=== PATIENT | female | born 1945 | race Caucasian/White ===

== ENCOUNTER 2017-03-18 11:50 | Emergency (ER) | payer OTHER, BC ==
[2017-03-18 12:09] VITALS: BP 172/66; PULSE 68; TEMP 97.4; BMI 19.3
--- NOTE | 2017-03-18 12:40 | PDOC ---
History of Present Illness - General Chief Complaint: Tremors Stated Complaint: HAND TREMORS, UTI Time Seen by Provider: 03/18/17 12:40 - History of Present Illness Initial Comments: 03/18/17 16:13 Chief complaint: Tremors History of present illness: Patient complains of fine tremors in both hands for the last several months. They are intermittent, and appear to be associated with nervousness or anxiety. They disappear with use of the hands. Review of systems: Denies any other neurological symptoms including sensory or motor symptoms in the extremities, unsteadiness of gait, visual disturbance. Denies chest pain, shortness of breath, abdominal pain, nausea, vomiting, diarrhea, vaginal bleeding or discharge, dysuria, frequency, urgency, hesitancy , hematuria, fever/chills, URI symptoms, sore throat, cough. Remainder systems reviewed and found to be negative Past medical history: Recurrent urinary tract infections, being treated for UTI , undergoing cystoscopy later this afternoon by her urologist. Otherwise noncontributory Social/family history: Nervousness, anxiety, has not address the issue with her physicians. Sibling with Parkinson's. Otherwise noncontributory Physical exam: Alert oriented well-developed well-nourished cooperative no acute distress Afebrile, vital signs normal PERRLA, fundi benign, ENT clear Neck supple without bruit mass or nodes Chest clear CV regular without murmur rub or gallop Abdomen benign Neurological there is a fine tremor in both hands at rest, disappearing with intent. There is no hyperreflexia or rigidity. Gait is stable. No focal sensory or motor deficits. Strength full and symmetric. Cerebellum intact Impression: Fine tremor associated with anxiety, possible early Parkinson's. Persistent pyuria being worked up by urologist. Plan: Mild anxiolytic to use when necessary until further evaluation by neurologist. Fully ambulatory and in no distress upon discharge to follow-up with urologist and neurologist as directed. Past History - Past Medical History Allergies/Adverse Reactions: Allergies Allergy/AdvReac Type Severity Reaction Status Date / Time No Known Allergies Allergy Verified 03/18/17 12:03 Home Medications: Ambulatory Orders Levothyroxine [Synthroid -] 50 mcg PO Q48H 04/27/11 B2/Vits A,C,E/Lut/Zeaxanth/Min [Icaps Tablet] 1 each PO DAILY 01/22/15 Ca Citrate/Mgox/Vit D3/B6/Min [Citracal Plus Tablet] 1 each PO DAILY 01/22/15 Cholecalciferol (Vitamin D3) [Vitamin D3] 1,000 unit PO DAILY 01/22/15 Multivitamin with Minerals [Icaps Plus] 1 each PO DAILY 01/22/15 Levothyroxine [Synthroid -] 75 mcg PO Q48H 01/23/15 Metoprolol Succinate [Toprol Xl] 100 mg PO HS 01/23/15 Aspirin Coated [Ecotrin -] 81 mg PO HS 03/18/17 Denosumab [Prolia -] 60 mg SQ ASDIR 03/18/17 Hydroxyzine Pamoate [Vistaril -] 25 mg PO TID PRN #20 capsule 03/18/17 Anemia: No Asthma: No Cancer: No Cardiac Disorders: Yes (IRREGULAR HEART BEAT, MVP) CVA: No COPD: No CHF: No Dementia: No Diabetes: No GI Disorders: Yes (IBS,DIVERTICULAR DIS.OF COLON,BENIGN NEOPLASM OF COLON) Disorders: No HTN: Yes Hypercholesterolemia: No Liver Disease: No Seizures: No Thyroid Disease: Yes - Surgical History Abdominal Surgery: No Appendectomy: No Cardiac Surgery: No Cholecystectomy: No Lung Surgery: No Neurologic Surgery: No Orthopedic Surgery: No - Immunization History Immunization Up to Date: Yes - Suicide/Smoking/Psychosocial Hx Smoking Status: No Smoking History: Never smoked Number of Cigarettes Smoked Daily: 0 Hx Alcohol Use: Yes (RARE OCCASIONS) Drug/Substance Use Hx: No Substance Use Type: None Hx Substance Use Treatment: No *Physical Exam - Vital Signs Last Vital Signs Temp Pulse Resp BP Pulse Ox 97.4 F L 68 16 172/66 100 03/18/17 11:58 03/18/17 11:58 03/18/17 11:58 03/18/17 11:58 03/18/17 11:58 ED Treatment Course - LABORATORY CBC & Chemistry Diagram: 03/18/17 14:00 03/18/17 14:00 Medical Decision Making - Medical Decision Making 03/18/17 14:24 Greater than 50 white cells. The patient is being treated for UTI and has an appointment for cystoscopy this afternoon with the urologist. No further treatment initiated *DC/Admit/Observation/Transfer Diagnosis at time of Disposition: Essential tremor - Discharge Dispostion Disposition: HOME Condition at time of disposition: Stable Admit: No - Prescriptions Prescriptions: Hydroxyzine Pamoate [Vistaril -] 25 mg PO TID PRN #20 capsule PRN Reason: Anxiety - Referrals Referrals: Steven Barros DO [Staff Physician] - 1 week - Patient Instructions Printed Discharge Instructions: DI for Anxiety -- Adult, DI for Benign Essential Tremor - Post Discharge Activity
[2017-03-18 13:12] LABS: URINE APPEARANCE Cloudy; URINE BILIRUBIN Negative (NEGATIVE); URINE BLOOD Trace-intact (NEGATIVE); URINE COLOR YELLOW; URINE GLUCOSE (UA) Negative (NEGATIVE); URINE KETONE Negative (NEGATIVE); URINE NITRITE Negative (NEGATIVE); URINE PROTEIN Negative (NEGATIVE); URINE UROBILINOGEN 0.2 (0.2-1.0)
[2017-03-18 13:37] LABS: EPI CELLS FEW /HPF; URINE BACTERIA MANY /hpf (NEGATIVE); URINE RBC 0-2 /hpf (0-3); URINE WBC >50 (0-5)
[2017-03-18] MEDS ORDERED: hydrOXYzine PAMOATE 25 MG CAPSULE (FP) PO ONE ×2 (13:50→14:02)
[2017-03-18 14:29] LABS: BASO % 0.9 % (0-2.0); EOS % 1.8 % (0-4.5); HEMATOCRIT 45.3 % (32.4-45.2); HEMOGLOBIN 14.7 GM/dl (10.7-15.3); LYMPH % 18.6 % (8-40); MCH 30.4 pg (25.7-33.7); MCHC 32.5 g/dl (32.0-36.0); MEAN CELL VOLUME 93.6 fl (80-96); MEAN PLT VOLUME 7.6 fl (7.5-11.1); MONO % 7.6 % (3.8-10.2); NEUT % 71.1 % (42.8-82.8); PLATELET COUNT 387 K/MM3 (134-434); RBC 4.84 M/mm3 (3.60-5.2); RDW 12.5 % (11.6-15.6); WHITE BLOOD COUNT 6.6 K/mm3 (4.0-10.8)
[2017-03-18 16:03] LABS: ANION GAP 7 (8-16); BILIRUBIN,TOTAL 0.4 mg/dL (0.2-1.0); BLOOD UREA NITROGEN 14 mg/dL (7-18); CALCIUM 9.2 mg/dL (8.5-10.1); CHLORIDE 105 mmol/L (98-107); CO2 29 mmol/L (21-32); CREATININE 1.2 mg/dL (0.55-1.02); GLUCOSE,RANDOM 101 mg/dL (74-106); POTASSIUM 4.8 mmol/L (3.5-5.1); SGOT/AST 29 U/L (15-37); SGPT/ALT 25 U/L (12-78); SODIUM 141 mmol/L (136-145); TOT PROT 7.6 g/dl (6.4-8.2)
[2017-03-18 16:04] LABS: ALK PHOS 64 U/L (45-117)
== END 2017-03-18 14:14 | disposition home or self-care (01) ==
LOC: FER 11:50
DX: R25.1 Tremor, unspecified (principal); K58.9 Irritable bowel syndrome, unspecified; E07.9 Disorder of thyroid, unspecified; I10 Essential (primary) hypertension
CPT/HCPCS: 36415; 80053; 81003; 81015; 85025; 87086; 87186; 99281-25

== ENCOUNTER 2019-01-19 10:53 | Emergency (ER) | payer OTHER, BC ==
[2019-01-19 11:06] VITALS: BMI 25.5
--- NOTE | 2019-01-19 11:15 | PDOC ---
History of Present Illness - General Chief Complaint: Injury Stated Complaint: LOWER BACK PAIN - History of Present Illness Initial Comments: 01/19/19 12:55 74 year old woman with a history of HTN who presents with neck, upper and lower back pain, R knee pain after slipping down 8 stairs 2 days ago, The patient was able to stand up and walk but reports since the fall her pain has worsened. She denies any changes in vision or hearing. Denies chest pain, shortness of breath , abdominal pain, pain in any other extremities. She has no other complaints Meds: ASA 81 ROS GENERAL/CONSTITUTIONAL: No fever or chills. No weakness. HEAD, EYES, EARS, NOSE AND THROAT: No change in vision. No ear pain or discharge. No sore throat. CARDIOVASCULAR: No chest pain or shortness of breath RESPIRATORY: No cough, wheezing, or hemoptysis. GASTROINTESTINAL: No nausea, vomiting, diarrhea or constipation. GENITOURINARY: No dysuria, frequency, or change in urination. MUSCULOSKELETAL: + joint or muscle swelling or pain. + neck or back pain. SKIN: No rash NEUROLOGIC: No headache, vertigo, loss of consciousness, or change in strength/ sensation. PE GENERAL: Awake, alert, and fully oriented, in no acute distress HEAD: No signs of trauma, normocephalic, atraumatic EYES: EOMI, sclera anicteric, conjunctiva clear ENT: oropharynx clear without exudates. Moist mucosa NECK: Normal ROM, supple LUNGS: No distress, speaks full sentences, clear to auscultation bilaterally HEART: Regular rate and rhythm, normal S1 and S2, no murmurs, rubs or gallops, peripheral pulses normal and equal bilaterally. ABDOMEN: Soft, nontender No guarding, no rebound. No masses BACK: upper thoracic spinal tenderness, lumbar spinal ttp, L lumbar brusing, no stepoffs EXTREMITIES : Normal inspection, Normal range of motion, + R knee tenderness to palpation, NV intact NEUROLOGICAL: Cranial nerves II through XII grossly intact. Normal speech, no focal sensorimotor deficits SKIN: Warm, Dry, normal turgor, no rashes or lesions noted MDM DDX including but not limited to: r/o fx msk ED Course: XR negative for R knee XR of pelvis with signs of old R sided inf pubic rami fx XR of chest with L nodular density, otherwise negative CT with T3 compression deformity, no neurologic changes will giv spine ortho f/u Patinet feels improved on reassessment and ambulating without difficulty d/c with ortho and pcp f/u patient understands and agrees given strict return precautions Zee Lane PGY2 Emergency Medicine Past History - Past Medical History Allergies/Adverse Reactions: Allergies Allergy/AdvReac Type Severity Reaction Status Date / Time No Known Allergies Allergy Verified 03/18/17 12:03 Home Medications: Ambulatory Orders Metoprolol Succinate [Toprol Xl] 100 mg PO HS 01/23/15 Aspirin Coated [Ecotrin -] 81 mg PO HS 03/18/17 Amlodipine Besylate [Norvasc -] 5 mg PO DAILY 01/19/19 Cholecalciferol (Vitamin D3) [Vitamin D3 -] 1,000 unit PO DAILY 01/19/19 Donepezil HCl 5 mg PO DAILY 01/19/19 Levothyroxine [Synthroid -] 88 mcg PO DAILY 01/19/19 Losartan Potassium 100 mg PO DAILY 01/19/19 Anemia: No Asthma: No Cancer: No Cardiac Disorders: Yes (IRREGULAR HEART BEAT, MVP) CVA: No COPD: No CHF: No Dementia: No Diabetes: No GI Disorders: Yes (IBS,DIVERTICULAR DIS.OF COLON,BENIGN NEOPLASM OF COLON) Disorders: No HTN: Yes Hypercholesterolemia: No Liver Disease: No Seizures: No Thyroid Disease: Yes - Surgical History Abdominal Surgery: No Appendectomy: No Cardiac Surgery: No Cholecystectomy: No Lung Surgery: No Neurologic Surgery: No Orthopedic Surgery: No - Immunization History Immunization Up to Date: Yes - Psycho Social/Smoking Cessation Hx Smoking Status: No Smoking History: Never smoked Have you smoked in the past 12 months: No Number of Cigarettes Smoked Daily: 0 Information on smoking cessation initiated: No Hx Alcohol Use: No Drug/Substance Use Hx: No Substance Use Type: None Hx Substance Use Treatment: No *Physical Exam - Vital Signs Last Vital Signs Temp Pulse Resp BP Pulse Ox 97.9 F 87 16 161/52 L 97 01/19/19 10:59 01/19/19 10:59 01/19/19 10:59 01/19/19 10:59 01/19/19 10:59 Discharge - Discharge Information Problems reviewed: Yes Clinical Impression/Diagnosis: Vertebral compression fracture Condition: Stable Disposition: HOME - Admission No - Follow up/Referral Referrals: Oswald Paez MD [Primary Care Provider] - Artie Juárez MD [Staff Physician] - - Patient Discharge Instructions Patient Printed Discharge Instructions: Vertebral Compression Fracture Additional Instructions: You were seen in the ER after a fall Your imaging was significant for T3 compression deformity You have a referral to spine ortho speciality and should follow up within 1 week. You were also found to have a L lung nodule for which you should follow up with your Family Doctor within 1 week. Return to the ER if you have worsening back pain, numbness, tingling, difficulty breathing or any other concerning symptoms. - Post Discharge Activity
[2019-01-19] MEDS ORDERED: ACETAMINOPHEN 325 MG TABLET (FP) PO ONE (11:19)
[2019-01-19] MEDS ORDERED: ACETAMINOPHEN 325 MG TABLET (FP) ONE (11:58)
--- NOTE | 2019-01-19 12:33 | PDOC ---
Documentation entered by Abby Brunson SCRIBE, acting as scribe for Patrice Suárez MD. Patrice Suárez MD: This documentation has been prepared by the Boy gallagher Nirvannie, SCRIBE, under my direction and personally reviewed by me in its entirety. I confirm that the documentation accurately reflects all work, treatment, procedures, and medical decision making performed by me. Attending Attestation - Resident Resident Name: Zee Laen - ED Attending Attestation I have performed the following: I have examined & evaluated the patient, The case was reviewed & discussed with the resident, I agree w/resident's findings & plan, Exceptions are as noted - HPI HPI: 01/19/19 12:33 74 F presenting to ED with lower back pain after fall 2 days ago. Pt states that she slipped going downstairs and landed on her back, also hitting her head against the stairs. Denies LOC. Pt states that she slid down on her backside approx 8 stairs. She was able to get herself up afterwards. Yesterday, pt reports that her pain was well controlled with motrin, and she was able to go about her day. This morning, pt awoke with worsening lower back pain. Pt denies any CORDON/N/V. Denies neck or upper back pain. Denies weakness/numbness in any extremity. Denies incontinence. - Physicial Exam PE: 01/19/19 12:36 "GENERAL: Awake, alert, and fully oriented, in no acute distress. HEAD: No signs of trauma EYES: PERRLA, EOMI, sclera anicteric, conjunctiva clear ENT: Auricles normal inspection, hearing grossly normal, nares patent, oropharynx clear without exudates. Moist mucosa NECK: Nontender, no stepoffs, Normal ROM, supple, no lymphadenopathy, JVD, or masses LUNGS: Breath sounds equal, clear to auscultation bilaterally. No wheezes, and no crackles HEART: Regular rate and rhythm, normal S1 and S2, no murmurs, rubs or gallops ABDOMEN: Soft, nontender, normoactive bowel sounds. No guarding, no rebound. No masses EXTREMITIES: Normal range of motion, no edema. No clubbing or cyanosis. No cords, erythema, or tenderness NEUROLOGICAL: Cranial nerves II through XII intact. 5/5 strength and sensation in all extremities, Normal speech, normal gait, normal cerebellar function SKIN: Warm, Dry, normal turgor, no rashes or lesions noted. BACK: + ecchymosis and tenderness lumbar area, no stepoffs - Medical Decision Making 01/19/19 12:36 74 F with lower back pain, ecchymosis, tenderness, after falling 2 days ago. - CT head/c-spine/T-spine/L-spine 01/19/19 14:54 CT with compression fx in T spine Pt with no neuro deficits. Pain is well controlled Ambulatory in ED with steady gait Will DC with ortho spine f/u Pt is well appearing, with normal vitals. Clinically stable for DC at this time. I discussed the physical exam findings, ancillary test results and final diagnoses with the patient. I answered all of the patient's questions. The patient was satisfied with the care received and felt comfortable with the discharge plan and treatment plan. The patient agrees to follow up with the primary care physician within 24-72 hours.
[2019-01-19 15:18] VITALS: BP 123/63; PULSE 89; TEMP 97
--- NOTE | 2019-01-22 20:30 | EKG ---
Test Reason : Blood Pressure : / mmHG Vent. Rate : 088 BPM Atrial Rate : 088 BPM P-R Int : 158 ms QRS Dur : 070 ms QT Int : 382 ms P-R-T Axes : 011 -11 068 degrees QTc Int : 462 ms NORMAL SINUS RHYTHM NORMAL ECG NO PREVIOUS ECGS AVAILABLE Confirmed by DOTTIE SMITH MD ([id number]) on 01/22/2019 8:29:56 PM Referred By: Confirmed By:DOTTIE SMITH MD
== END 2019-01-19 15:15 | disposition home or self-care (01) ==
LOC: JER 10:53
DX: S22.038A Other fracture of third thoracic vertebra, initial encounter for closed fracture (principal); S30.0XXA Contusion of lower back and pelvis, initial encounter; M25.561 Pain in right knee; W10.8XXA Fall (on) (from) other stairs and steps, initial encounter; Y93.89 Activity, other specified; Y92.018 Other place in single-family (private) house as the place of occurrence of the external cause; I10 Essential (primary) hypertension; Y99.8 Other external cause status; R91.1 Solitary pulmonary nodule; E03.9 Hypothyroidism, unspecified; I34.1 Nonrheumatic mitral (valve) prolapse; I49.8 Other specified cardiac arrhythmias; Z87.19 Personal history of other diseases of the digestive system
CPT/HCPCS: 70450-TC; 71045-TC-FY; 72125-TC; 72128-TC; 72131-TC; 72170-TC-FY; 73560-TC-RT-FY; 87086; 87186; 93005; 93010; 99283-25

== ENCOUNTER 2019-04-12 10:50 | Emergency (ER) | payer OTHER, BC ==
[2019-04-12 11:10] VITALS: TEMP 98.6; BMI 19.5
--- NOTE | 2019-04-12 13:12 | PDOC ---
History of Present Illness - General Chief Complaint: Lightheaded Stated Complaint: FALL ON FACE Time Seen by Provider: 04/12/19 13:07 History Source: Patient Exam Limitations: No Limitations - History of Present Illness Initial Comments: 04/12/19 13:11 Genevieve Blevins is a 74F with PMH HTN, osteoporosis, and essential tremor presenting with lightheadedness and fall on face. At 5AM stood up from bed and was walking to bathroom, says she felt dizzy, slipped while wearing socks on wood floor, fell onto face and arms. Denies chest pain, palpitations, SOB, vision changes, weakness prior. saw patient after fall, helped up, patient walked to restroom by herself with normal gait, per at baseline mental status. Patient denies LOC, CORDON. Patient walked back to bed, took a nap. Daughter came and brought patient to hospital for further eval at lunchtime. Patient reports facial swelling, no CORDON or vision changes. Say she has pain in her left buttock and some bruising on her arms, otherwise denies chest, neck, back pain. On daily ASA 81mg, no other AC. No allergies. Takes daily metoprolol for HTN. PSH back surgery. PMD [facility] Past History - Past Medical History Allergies/Adverse Reactions: Allergies Allergy/AdvReac Type Severity Reaction Status Date / Time No Known Allergies Allergy Verified 04/12/19 11:07 Home Medications: Ambulatory Orders Metoprolol Succinate [Toprol Xl] 100 mg PO HS 01/23/15 Aspirin Coated [Ecotrin -] 81 mg PO HS 03/18/17 Amlodipine Besylate [Norvasc -] 5 mg PO DAILY 01/19/19 Cholecalciferol (Vitamin D3) [Vitamin D3 -] 1,000 unit PO DAILY 01/19/19 Donepezil HCl 5 mg PO DAILY 01/19/19 Levothyroxine [Synthroid -] 88 mcg PO DAILY 01/19/19 Losartan Potassium 100 mg PO DAILY 01/19/19 Denosumab [Prolia] 60 mg SQ ASDIR 04/12/19 Anemia: No Asthma: No Cancer: No Cardiac Disorders: Yes (IRREGULAR HEART BEAT, MVP) CVA: No COPD: No CHF: No Dementia: No Diabetes: No GI Disorders: Yes (IBS,DIVERTICULAR DIS.OF COLON,BENIGN NEOPLASM OF COLON) Disorders: No HTN: Yes Hypercholesterolemia: No Liver Disease: No Seizures: No Thyroid Disease: Yes - Surgical History Abdominal Surgery: No Appendectomy: No Cardiac Surgery: No Cholecystectomy: No Lung Surgery: No Neurologic Surgery: No Orthopedic Surgery: No - Immunization History Immunization Up to Date: Yes - Psycho Social/Smoking Cessation Hx Smoking Status: No Smoking History: Never smoked Have you smoked in the past 12 months: No Number of Cigarettes Smoked Daily: 0 Hx Alcohol Use: No Drug/Substance Use Hx: No Substance Use Type: None Hx Substance Use Treatment: No Review of Systems - Review of Systems Able to Perform ROS?: Yes Constitutional: No: Chills, Fever HEENTM: No: Blurred Vision, Double Vision, Dental Problems, Difficulty Swallowing Respiratory: No: Cough, Shortness of Breath, Wheezing, Productive cough Cardiac (ROS): No: Chest Pain, Edema, Irregular Heart Rate, Lightheadedness, Palpitations, Syncope, Chest Tightness ABD/GI: No: Constipated, Diarrhea, Nausea, Poor Appetite, Poor Fluid Intake, Vomiting : No: Burning, Dysuria, Discharge, Frequency, Flank Pain, Hematuria, Incontinence, Pain Musculoskeletal: No: Back Pain, Muscle Pain, Muscle Weakness, Neck Pain Integumentary: Yes: Bruising. No: Lumps Neurological: Yes: Dizziness. No: Headache, Numbness, Paresthesia, Seizure, Unsteady Gait, Ataxia Endocrine: No: Symptoms Reported Hematologic/Lymphatic: No: Symptoms Reported All Other Systems: Reviewed and Negative *Physical Exam - Vital Signs Last Vital Signs Temp Pulse Resp BP Pulse Ox 98.6 F 77 16 134/48 L 99 04/12/19 11:07 04/12/19 11:07 04/12/19 11:07 04/12/19 11:07 04/12/19 11:07 - Physical Exam General Appearance: Yes: Nourished, Appropriately Dressed. No: Apparent Distress HEENT: positive: EOMI, CORINNE, Normal Voice, Symmetrical, Pharynx Normal. negative: Scleral Icterus (R), Scleral Icterus (L), Pharyngeal Erythema, Tonsillar Exudate, Tonsillar Erythema Neck: positive: Trachea midline, Normal Thyroid, Supple. negative: Tender, Rigid, Decreased range of motion (moves neck in all directions without pain or difficulty), Lymphadenopathy (R), Lymphadenopathy (L), Tender lateral, Tender midline Respiratory/Chest: positive: Lungs Clear, Normal Breath Sounds. negative: Chest Tender, Respiratory Distress, Accessory Muscle Use, Labored Respiration, Crackles, Rales, Rhonchi, Stridor, Wheezing Cardiovascular: positive: Regular Rhythm, Regular Rate. negative: Murmur Gastrointestinal/Abdominal: positive: Normal Bowel Sounds, Flat, Soft. negative : Tender, Organomegaly, Pulsatile Mass, Guarding, Rebound Musculoskeletal: positive: Normal Inspection. negative: CVA Tenderness, Decreased Range of Motion Extremity: positive: Normal Capillary Refill, Normal Range of Motion, Pelvis Stable. negative: Normal Inspection, Tender, Coldness, Cyanosis, Pedal Edema, Swelling Integumentary: positive: Normal Color, Dry, Warm, Bruising (R dorsal hand and left volar forearm) Neurologic: positive: diving instructor II-XII NML intact, Fully Oriented, Alert, Normal Mood/ Affect, Normal Response, Motor Strength 5/5 (no strength deficits in any groups) , Sensory Deficit. negative: Numbness Procedures - Laceration/Wound Repair Upper Anterior Nose Wound Length: to 2.5 cm Wound Explored: clean Wound's Depth, Shape: superficial Irrigated w/ Saline: Yes Betadine Prep: No Wound Repaired With: Dermabond ED Treatment Course - LABORATORY CBC & Chemistry Diagram: 04/12/19 14:00 04/12/19 14:00 - RADIOLOGY Radiograph Interpretation: 04/12/19 14:50 CT Head: No evidence of acute intracranial hemorrhage, edema, midline shift, mass effect, or skull fracture. No CT evidence of acute territorial ischemic changes. Left nasal bones fractures with soft tissue swelling. 04/12/19 14:51 CT Face: Left nasal bone fractures with soft tissue swelling, clinically correlate with point tenderness. Intact remaining facial bones. Medical Decision Making - Medical Decision Making 04/12/19 14:29 Patient presents with episode of dizziness and fall hours prior with trauma to face, denies other injuries other than some mild buttock pain with movement. A/ O x3, no speech or vision deficits, no CN deficits, no cerebellar deficits. Has 0.5cm nose laceration and left periorbital ecchymosis without vision deficits. Has known history of mechanical slip/fall. Will eval for cardiac causes given report dizziness, eval for head injury, Dermabond the laceration, likely dispo home if evaluation normal. - CT facial bones/head/c-spine for eval fractures and ICH - CMP for eval Cr/lytes - CBC for eval - CP/ECG/CXR for eval cardiac disease - Boostrix for tetanus, lac repair with Dermabond 04/12/19 14:52 CT shows left nasal bone fracture. No ICH or skull fx. No C-spine fx. Adding XR R hand for pain over R thumb on attending re-eval. Labs notable for: - CMP WNL - CBC WNL - trop 0.02 CXR unremarkable ECG no evidence of arrhythmia, ischemic changes, or TWI. 04/12/19 18:02 R hand XR no fracture. Dermabond applied to nasal bridge laceration, patient tolerated well. Patient needs f/u with ENT, referral given for nasal bone fracture. Stable for discharge home with ENT f/u. Discharge - Discharge Information Problems reviewed: Yes Clinical Impression/Diagnosis: Dizziness Fall Qualifiers: Encounter type: initial encounter Qualified Code(s): W19.XXXA - Unspecified fall, initial encounter Facial laceration Qualifiers: Encounter type: initial encounter Qualified Code(s): S01.81XA - Laceration without foreign body of other part of head, initial encounter Condition: Stable - Follow up/Referral Referrals: Chip Larson MD [Primary Care Provider] - Rick Reynolds MD [Staff Physician] - Chuckie Hadley MD [Staff Physician] - - Patient Discharge Instructions Patient Printed Discharge Instructions: DI for Laceration Repair With Dermabond Additional Instructions: Today you were evaluated for a fall and facial injury. Your CT scan does not show any evidence of brain bleeding, but you have a small nasal bone fracture that needs to be follow-ed up by an ENT doctor, and a referral has been given. Your labs do not show any evidence of infection, heart disease. Your fall was likely due to a trip and fall, but you should be careful in the future. Stay hydrated, see your assistant account executive, if you do not have one a referral has been given. If you experience worsening dizziness, chest pain, SOB, or any other new or concerning symptoms, please return to the emergency room. - Post Discharge Activity
[2019-04-12 14:23] LABS: BASO % 0.6 % (0-2.0); EOS % 0.3 % (0-4.5); HEMATOCRIT 44.1 % (32.4-45.2); HEMOGLOBIN 14.8 GM/dL (10.7-15.3); MCHC 33.5 g/dl (32.0-36.0); MEAN CELL VOLUME 89.6 fl (80-96); MEAN PLT VOLUME 7.4 fl (7.5-11.1); MONO % 11.1 % (3.8-10.2); PLATELET COUNT 374 K/MM3 (134-434); RBC 4.92 M/mm3 (3.60-5.2); RDW 13.9 % (11.6-15.6); WHITE BLOOD COUNT 10.1 K/mm3 (4.0-10.0)
[2019-04-12 14:35] LABS: INR 0.92 (0.83-1.09); PROTHROMBIN TIME (PATIENT) 10.9 SEC (9.7-13.0)
[2019-04-12 14:37] LABS: ACTIVATED PTT 31.5 SECONDS (25.2-36.5)
[2019-04-12] MEDS ORDERED: DIPHTH,PERTUSS(ACELL),TET 0.5 ML DISP.SYRIN IM ONE ×2 (14:40→15:51)
[2019-04-12 14:51] LABS: BILIRUBIN,TOTAL 0.3 mg/dL (0.2-1); BLOOD UREA NITROGEN 16.8 mg/dL (7-18); CALCIUM 9.4 mg/dL (8.5-10.1); POTASSIUM 4.1 mmol/L (3.5-5.1); TOT PROT 7.6 g/dl (6.4-8.2)
--- NOTE | 2019-04-12 15:44 | PDOC ---
Documentation entered by Charlette Maher SCRIBE, acting as scribe for Peter Martinez MD. Peter Martinez MD: This documentation has been prepared by the Gunnar gallagher Adrianna, SCRIBE, under my direction and personally reviewed by me in its entirety. I confirm that the documentation accurately reflects all work, treatment, procedures, and medical decision making performed by me. Attending Attestation - Resident Resident Name: Yoel Donovan - ED Attending Attestation I have performed the following: I have examined & evaluated the patient, The case was reviewed & discussed with the resident, I agree w/resident's findings & plan, Exceptions are as noted - HPI HPI: The patient is a 74 year old female, with a significant PMH of MVP, HTN IBS, and essential tremor, who presents to the ED for evaluation s/p mechanical fall from standing. Patient notes she felt dizzy while walking, slipped and fell to the floor hitting her face and arms. at bedside notes she is currently at her baseline mental status. Allergies: NKA, NKDA Surgical History: None reported Social History: Denies EtOH, tobacco, or illicit drug use PCP: Dr. Larson - Physicial Exam PE: 04/12/19 15:41 Patient is awake and alert, frail appearing, in no distress, GCS-15 Normocephalic, + extensive periorbital ecchymoses (most pronounced on the left) , with a 0.5 cm laceration to the glabella No bony crepitus or step-offs EOMI, PERRLA No hemotympanum, negative green sign Neck is supple, without gross deformity or midline tenderness to palpation CTA RRR Abdomen soft nontender Pelvis is stable + Ecchymoses to the base of the right thumb with mild tenderness to the snuffbox No focal neurological deficits - Medical Decision Making 04/12/19 15:43 Patient is 74-year-old female with multiple comorbidities who presents to the ER with facial and hand trauma status post mechanical fall. CT of head/ cervical spine and facial bones reveals a left nasal bone fracture without evidence of intracranial pathology. Will rule out scaphoid fracture. Will close glabella laceration primarily. Will update tetanus. Likely discharge.
[2019-04-12 17:58] VITALS: BP 154/87; PULSE 68
--- NOTE | 2019-04-13 14:28 | EKG ---
Test Reason : Blood Pressure : / mmHG Vent. Rate : 069 BPM Atrial Rate : 069 BPM P-R Int : 160 ms QRS Dur : 086 ms QT Int : 426 ms P-R-T Axes : 044 023 061 degrees QTc Int : 456 ms POOR DATA QUALITY, INTERPRETATION MAY BE ADVERSELY AFFECTED NORMAL SINUS RHYTHM NORMAL ECG WHEN COMPARED WITH ECG OF 19-JAN-2019 13:15, NO SIGNIFICANT CHANGE WAS FOUND Confirmed by BHARGAV FLAHERTY, AMANDA ([id number]) on 04/13/2019 2:28:16 PM Referred By: Confirmed By:AMANDA DURANT MD
== END 2019-04-12 17:58 | disposition home or self-care (01) ==
LOC: JER 10:50
PROC: 0HQ1XZZ Repair Face Skin, External Approach (ICD-10-PCS; principal; 2019-04-12)
DX: S02.2XXA Fracture of nasal bones, initial encounter for closed fracture (principal); S01.21XA Laceration without foreign body of nose, initial encounter; W01.0XXA Fall on same level from slipping, tripping and stumbling without subsequent striking against object, initial encounter; Z91.81 History of falling; Y93.89 Activity, other specified; Y92.013 Bedroom of single-family (private) house as the place of occurrence of the external cause; Y99.8 Other external cause status; I10 Essential (primary) hypertension; G25.0 Essential tremor; M19.90 Unspecified osteoarthritis, unspecified site; E07.9 Disorder of thyroid, unspecified; Z87.19 Personal history of other diseases of the digestive system
CPT/HCPCS: 36415; 70450-TC; 70486-TC; 71046-TC-FY; 72125-TC; 73130-TC-RT-FY; 80053; 82550; 84484; 85025; 85610; 85730; 90715; 93005; 93010; 99282-25

== ENCOUNTER 2019-05-12 11:45 | Emergency (ER) | payer OTHER, BC ==
--- NOTE | 2019-05-12 11:57 | PDOC ---
History of Present Illness - General Chief Complaint: Diarrhea Stated Complaint: DEHYDRATION Time Seen by Provider: 05/12/19 11:53 History Source: Patient Exam Limitations: No Limitations - History of Present Illness Initial Comments: 74 yo F with a hx of HTN, osteoporosis, essential tremor, IBS, and MVP presents to the emergency department with referral from PMD for dehydration in the setting diarrhea for the past 10 days. Per the patient's family, the patient completed a azithromycin pack last Wednesday for presumed infection. The patient continued to have diarrhea. The patient endorses 2-3 episodes per day without hematochezia. The patient denies the following: fevers, chills, nausea, vomiting, chest pain, SOB, headaches, and hematuria. Endorses dysuria for the past 2-3 days. Denies abdominal pain. Denies recent travels and recent sick contacts. Past History - Past Medical History Allergies/Adverse Reactions: Allergies Allergy/AdvReac Type Severity Reaction Status Date / Time No Known Allergies Allergy Verified 04/12/19 11:07 Home Medications: Ambulatory Orders Metoprolol Succinate [Toprol Xl] 100 mg PO HS 01/23/15 Aspirin Coated [Ecotrin -] 81 mg PO HS 03/18/17 Amlodipine Besylate [Norvasc -] 5 mg PO DAILY 01/19/19 Cholecalciferol (Vitamin D3) [Vitamin D3 -] 1,000 unit PO DAILY 01/19/19 Donepezil HCl 5 mg PO DAILY 01/19/19 Levothyroxine [Synthroid -] 88 mcg PO DAILY 01/19/19 Losartan Potassium 100 mg PO DAILY 01/19/19 Denosumab [Prolia] 60 mg SQ ASDIR 04/12/19 Antiox.mv No.10/Omeg3s/Lut/Bret [I-Caps with Lutein-[place] 3 Sfg] 1 each PO DAILY 05/12/19 Cephalexin [Keflex] 500 mg PO BID #20 capsule 05/12/19 Anemia: No Asthma: No Cancer: No Cardiac Disorders: Yes (IRREGULAR HEART BEAT, MVP) CVA: No COPD: No CHF: No Dementia: No Diabetes: No GI Disorders: Yes (IBS,DIVERTICULAR DIS.OF COLON,BENIGN NEOPLASM OF COLON) Disorders: No HTN: Yes Hypercholesterolemia: No Liver Disease: No Seizures: No Thyroid Disease: Yes - Surgical History Abdominal Surgery: No Appendectomy: No Cardiac Surgery: No Cholecystectomy: No Lung Surgery: No Neurologic Surgery: No Orthopedic Surgery: No - Immunization History Immunization Up to Date: Yes - Psycho Social/Smoking Cessation Hx Smoking Status: No Smoking History: Never smoked Have you smoked in the past 12 months: No Number of Cigarettes Smoked Daily: 0 Hx Alcohol Use: No Drug/Substance Use Hx: No Substance Use Type: None Hx Substance Use Treatment: No Review of Systems - Review of Systems Able to Perform ROS?: Yes Is the patient limited B[place]udian proficient: No Constitutional: Yes: Weakness. No: Chills, Diaphoresis, Fever HEENTM: No: Eye Pain, Ear Pain, Nose Pain, Throat Pain, Mouth Pain Respiratory: No: Cough, Shortness of Breath, Hemoptysis Cardiac (ROS): No: Chest Pain, Lightheadedness, Palpitations, Chest Tightness ABD/GI: No: Constipated, Diarrhea, Difficulty Swallowing, Nausea, Rectal Bleeding, Vomiting, Tarry Stools : No: Burning, Dysuria, Hematuria Musculoskeletal: No: Back Pain, Joint Pain, Neck Pain Integumentary: No: Bruising, Erythema, Rash Neurological: No: Headache, Numbness, Tingling, Tremors Psychiatric: No: Change in Appetite Endocrine: No: Unexplained Weight Loss Hematologic/Lymphatic: No: Anemia *Physical Exam - Physical Exam General Appearance: Yes: Nourished, Appropriately Dressed. No: Apparent Distress, Obese HEENT: positive: EOMI, CORINNE, Normal Voice, Symmetrical, Pharynx Normal, Hearing Grossly Normal, Other (dry mucuous membranes). negative: Pale Conjunctivae, Scleral Icterus (R), Scleral Icterus (L), Muffled/Hoarse voice, Pharyngeal Erythema, Tonsillar Exudate, Tonsillar Erythema, Rhinorrhea, Sinus Tenderness, Excessive drooling Neck: positive: Trachea midline, Supple. negative: Tender, Lymphadenopathy (R), Lymphadenopathy (L) Respiratory/Chest: positive: Lungs Clear, Normal Breath Sounds. negative: Chest Tender, Respiratory Distress, Accessory Muscle Use Cardiovascular: positive: Regular Rhythm, Regular Rate, S1, S2. negative: S ystolic Murmur Gastrointestinal/Abdominal: positive: Normal Bowel Sounds, Flat, Soft. negative: Tender, Distended, Guarding, Rebound, Tenderness, Hernia Lymphatic: negative: Adenopathy Musculoskeletal: positive: Normal Inspection. negative: CVA Tenderness, Vertebral Tenderness Extremity: positive: Normal Capillary Refill, Normal Inspection, Normal Range of Motion. negative: Tender, Swelling, Calf Tenderness Integumentary: positive: Normal Color, Dry, Warm. negative: Swelling, Ecchymosis Neurologic: positive: Alert, Normal Mood/Affect ED Treatment Course - LABORATORY CBC & Chemistry Diagram: 05/12/19 12:45 05/12/19 12:45 Medical Decision Making - Medical Decision Making 74 yo F with a hx of HTN, osteoporosis, essential tremor, IBS, and MVP presents to the emergency department with referral from PMD for dehydration in the setting diarrhea for the past 10 days. Initial vitals: Initial Vital Signs Temp Pulse Resp BP Pulse Ox 98.1 F 70 18 153/60 99 05/12/19 11:50 05/12/19 11:50 05/12/19 11:50 05/12/19 11:50 05/12/19 11:50 Work up: patient presents with dry mucous membranes and dehydration. The patient has multiple diarrheal episodes, concerning for c diff. the patient has no abdominal pain. will assess for electrolyte imbalances. Laboratory Tests 05/12/19 05/12/19 05/12/19 12:40 12:45 12:45 WBC 7.2 RBC 4.74 Hgb 14.0 Hct 43.1 MCV 90.9 MCH 29.6 MCHC 32.5 RDW 13.3 Plt Count 469 H MPV 7.1 L Absolute Neuts (auto) 4.4 Neutrophils % 61.7 Lymphocytes % 23.1 Monocytes % 10.3 H Eosinophils % 3.7 Basophils % 1.2 Sodium 138 Potassium 4.1 Chloride 108 H Carbon Dioxide 26 Anion Gap 4 L BUN 18.0 Creatinine 1.0 Est GFR (CKD-EPI)AfAm 63.38 Est GFR (CKD-EPI)NonAf 54.68 Random Glucose 92 Calcium 8.8 Total Bilirubin 0.4 AST 35 ALT 35 Alkaline Phosphatase 62 Total Protein 7.4 Albumin 4.0 Urine Color Yellow Urine Appearance Clear Urine pH 7.0 Urine Protein Negative Urine Glucose (UA) Negative Urine Ketones Negative Urine Blood Trace-intact Urine Nitrite Positive H Urine Bilirubin Negative Urine Urobilinogen 0.2 Ur Leukocyte Esterase 2+ Urine RBC 2-5 Urine WBC 10-20 Ur Transition Epith Cell Few Urine Bacteria Moderate patient has symptomatic dysuria and UA positive for UTI. patient advised to follow up with pmd within 1 week after discharge given a total of 1 L of fluids for resuscitation. Will be discharged back to PMD Discharge - Discharge Information Problems reviewed: Yes Clinical Impression/Diagnosis: UTI (urinary tract infection) Condition: Good Disposition: HOME - Admission No - Additional Discharge Information Prescriptions: Cephalexin [Keflex] 500 mg PO BID #20 capsule - Follow up/Referral Referrals: Chip Larson MD [Primary Care Provider] - - Patient Discharge Instructions Patient Printed Discharge Instructions: DI for Dehydration -- Adult, DI for Urinary Tract Infection (UTI) Additional Instructions: You were seen in the emergency department for the evaluation of your dehydration. You were subsequently found to have a UTI. Please take the antibiotics as indicated. Please follow up with your primary medical doctor within 1 week after discharge for follow up care and management. Please return to the emergency department if you have worsening symptoms. Thank you. - Post Discharge Activity
[2019-05-12 12:09] VITALS: BMI 19.3
[2019-05-12] MEDS ORDERED: SODIUM CHLORIDE 1,000 ML IV STA (12:19)
[2019-05-12] MEDS ORDERED: SODIUM CHLORIDE 500 ML IV STA ×2 (12:22→13:09)
--- NOTE | 2019-05-12 12:28 | PDOC ---
Attending Attestation - Resident Resident Name: Tyler Levi - HPI HPI: 05/12/19 13:03 pt presents to the ED complaining of a 10 day history of profuse watery diarrhea, without nausea, vomiting diarrhea or abdominal pain. Completed a brief course of zithromax, but no other risk factors for C Diff other than age. - Physicial Exam PE: 05/12/19 13:29 Gen: alert, NAD. CV: rrr no m/r/g Pulm: cta B/l Abdomen: soft, non tender, non distended without guarding or rebound. - Medical Decision Making 05/12/19 13:29 Pt presents to the ED complaining of a 10 day history of diarrhea, without nausea, vomiting or abdominal pain. Differential includes gastroenteritis, IBD, less likely C diff. will check labs to evaluate for dehydration, give gentle hydration in the ED and refer to PCP for follow up.
[2019-05-12 13:06] LABS: BASO % 1.2 % (0-2.0); EOS % 3.7 % (0-4.5); HEMATOCRIT 43.1 % (32.4-45.2); LYMPH % 23.1 % (8-40); MCH 29.6 pg (25.7-33.7); MCHC 32.5 g/dl (32.0-36.0); MEAN CELL VOLUME 90.9 fl (80-96); MEAN PLT VOLUME 7.1 fl (7.5-11.1); MONO % 10.3 % (3.8-10.2); NEUT % 61.7 % (42.8-82.8); PLATELET COUNT 469 K/MM3 (134-434); RBC 4.74 M/mm3 (3.60-5.2); RDW 13.3 % (11.6-15.6); WHITE BLOOD COUNT 7.2 K/mm3 (4.0-10.8)
[2019-05-12 13:14] LABS: BILIRUBIN,TOTAL 0.4 mg/dl (0.2-1); CALCIUM 8.8 mg/dl (8.5-10); POTASSIUM 4.1 mmol/L (3.5-5.1); TOT PROT 7.4 g/dl (6.4-8.2)
[2019-05-12 13:27] LABS: EPITHELIAL CELLS FEW /hpf
[2019-05-12 14:30] VITALS: BP 139/61; PULSE 60; TEMP 98.3
[2019-05-12] MEDS ORDERED: CEPHALEXIN MONOHYDRATE 500 MG CAPSULE (UD) PO ONE (14:57)
[2019-05-12] MEDS ORDERED: CEPHALEXIN MONOHYDRATE 500 MG CAPSULE (UD) ONE (15:01)
== END 2019-05-12 15:06 | disposition home or self-care (01) ==
LOC: FER 11:45
PROC: 3E0337Z Introduction of Electrolytic and Water Balance Substance into Peripheral Vein, Percutaneous Approach (ICD-10-PCS; principal; 2019-05-12)
DX: N39.0 Urinary tract infection, site not specified (principal); I10 Essential (primary) hypertension; K58.9 Irritable bowel syndrome, unspecified; R25.1 Tremor, unspecified; I34.1 Nonrheumatic mitral (valve) prolapse
CPT/HCPCS: 36415; 80053; 81003; 81015; 85025; 87086; 87186; 96360; 96361; 99283-25

== ENCOUNTER 2019-11-07 16:00 | Emergency (ER) | payer OTHER, BC ==
--- NOTE | 2019-11-07 16:26 | PDOC ---
History of Present Illness - General Chief Complaint: Laceration Stated Complaint: FALL Time Seen by Provider: 11/07/19 16:07 - History of Present Illness Initial Comments: HPI: 74yo F with PMH of MVP, HTN, IBS, essential tremor presenting after a fall. Patient reports that about two hours prior to arrival she was going up some concrete steps while carrying things in both arms. She slipped and fell backwards. Notes that her neck jerked back. Denies prodrome prior to fall: no dizziness, weakness, chest pain, or shortness of breath. Her did not witness the fall but noted he found her in a sitting position. She was bleeding from her arms so the washed and bandaged the wounds. Patient denies loss of consciousness or hitting her head. On a baby ASA but no coumadin or NOAC. Was able to ambulate at baseline (on her own with no cane or walker) after the incident. Endorsing pain on left anterior chest wall and bilateral arms. Denies fever or chills. PCP: Dr. Montenegro ROS: Constitutional: no fever, no chills HEENT: no throat pain, no dysphagia Cardiovascular: no chest pain, no palpitations Respiratory: no cough, no shortness of breath Gastrointestinal: no abdominal pain, no nausea Genitourinary: no dysuria, no hematuria Musculoskeletal: no myalgia, +arm pain Skin: no rash, +wounds Neurologic: no headache, no weakness Psych: no agitation, no anxiety PE: General: Awake, alert, and fully oriented, in no acute distress Head: No signs of trauma Eyes: EOMI, sclera anicteric ENT: Moist mucus membranes Neck: Normal ROM, supple, no midline neck/back pain Lungs: Lungs clear, Normal breath sounds Cardio: Regular rhythm, S1 and S2 present; left-sided chest wall tenderness to palpation Abdomen: Soft, nontender Extremities: Normal range of motion, Distal pulses present Skin: Multiple ecchymoses and skin tears on bilateral upper extremities, hemostatic Neurologic: Cranial nerves II through XII intact. Normal speech, sensation, strength, coordination, gait; hand tremor present ED Course/MDM: DDX including but not limited to fracture, break, laceration, syncope CT Head, Cspine Radiographs Tylenol 11/07/19 16:26 Ribs: "EXAM#: TYPE/EXAM: RESULT: [id number] RAD/RIBS-LEFT SIDE ADDENDUM ADDENDUM #1 There is no sign of a pneumothorax or infiltrate. ORIGINAL REPORT Chest and left RIBS: Fall. Pain. A single view of the chest and 4 views of the left ribs have been submitted. The chest image shows rotation to the left with weak inspiration, large heart, prominent knob, prominent hilar markings especially on the left and atelectatic changes at the bases. There may be a nodular density at the right base. The angles are sharp and the soft tissues are intact. There is a scoliosis with degenerative changes and wedging. There is a deformity of the right humeral head and neck but this looks old most likely due to old trauma. 4 views of the left ribs reveal no sign of blastic or lytic changes and no sign of a gross fracture. A marker has not been placed where there is specific pain. If symptoms persist, further imaging with CT may be of help. Reported By: Oswald Lozada MD 11/07/19 1833 ADDENDUM ADDENDUM #1 There is no sign of a pneumothorax or infiltrate. ADDENDUM #2 ER at [facility]/Dr. James notified of findings on 11/07/2019 at 1835 hours. ORIGINAL REPORT Chest and left RIBS: Fall. Pain. A single view of the chest and 4 views of the left ribs have been submitted. The chest image shows rotation to the left with weak inspiration, large heart, prominent knob, prominent hilar markings especially on the left and atelectatic changes at the bases. There may be a nodular density at the right base. The angles are sharp and the soft tissues are intact. There is a scoliosis with degenerative changes and wedging. There is a deformity of the right humeral head and neck but this looks old most likely due to old trauma. 4 views of the left ribs reveal no sign of blastic or lytic changes and no sign of a gross fracture. A marker has not been placed where there is specific pain. If symptoms persist, further imaging with CT may be of help. Reported By: Oswald Lozada MD 11/07/19 1840 Chest and left RIBS: Fall. Pain. A single view of the chest and 4 views of the left ribs have been submitted. The chest image shows rotation to the left with weak inspiration, large heart, prominent knob, prominent hilar markings especially on the left and atelectatic changes at the bases. There may be a nodular density at the right base. The angles are sharp and the soft tissues are intact. There is a scoliosis with degenerative changes and wedging. There is a deformity of the right humeral head and neck but this looks old most likely due to old trauma. 4 views of the left ribs reveal no sign of blastic or lytic changes and no sign of a gross fracture. A marker has not been placed where there is specific pain. If symptoms persist, further imaging with CT may be of help. Reported By: Oswald Lozada MD 11/07/19 1832 " L. Shoulder: "EXAM#: TYPE/EXAM: RESULT: [id number] RAD/SHOULDER-LEFT Left shoulder: Fall. Pain. 2 views of the left shoulder reveal no sign of an acute fracture or subluxation no sign of blastic or lytic changes. If symptoms persist or if there is decreased range of motion, then further imaging may be of help. Reported By: Oswald Lozada MD 11/07/19 182 " L. humerus: "EXAM#: TYPE/EXAM: RESULT: [id number] RAD/HUMERUS-LEFT Left Humerus: Fall. Pain. 2 views of the left humerus reveal no sign of a gross fracture or subluxation and no sign of blastic or lytic changes. If symptoms persist, further imaging may be of help. Reported By: Oswald Lozada MD 11/07/19 1829 " L. forearm: "EXAM#: TYPE/EXAM: RESULT: [id number] RAD/FOREARM- LEFT Left forearm: Pain. Fall. 2 views of the left forearm reveal no sign of fracture or subluxation no sign of blastic or lytic changes. There is no sign of a foreign body or soft tissue air. There may be a subtle soft tissue injury by the proximal forearm. Clinical correlation suggested. If symptoms persist, further imaging may be of help. Impression: No acute left forearm fracture. Possible soft tissue injury. Reported By: Oswald Lozada MD 11/07/19 182 " R. humerus: "EXAM#: TYPE/EXAM: RESULT: [id number] RAD/HUMERUS-RIGHT ADDENDUM ADDENDUM #1 ER at [facility]/Dr. James notified of findings on 11/07/2019 at 1835 hours. ORIGINAL REPORT Right humerus: Fall. Pain. 2 views of the right humerus reveal what may be old trauma involving the proximal right humerus/head. An acute process is not appreciated. Correlation recommended. If symptoms persist or there is decreased range of motion , then further imaging and orthopedic consultation may be of help Reported By: Oswald Lozada MD 11/07/191838 Right humerus: Fall. Pain. 2 views of the right humerus reveal what may be old trauma involving the proximal right humerus/head. An acute process is not appreciated. Correlation recommended. If symptoms persist or there is decreased range of motion , then further imaging and orthopedic consultation may be of help Reported By: Oswald Lozada MD 11/07/19 182 " R. forearm: "EXAM#: TYPE/EXAM: RESULT: [id number] RAD/FOREARM- RIGHT ADDENDUM ADDENDUM #1 ER at [facility]/Dr. James notified of findings on 11/07/2019 at 1835 hours. ORIGINAL REPORT Right forearm: Fall. Pain. 2 views of the right forearm reveal a subtle deformity of the metaphysis of the distal right radius. This may indicate a subtle impaction fracture of unclear age. The remainder the study is unremarkable. Clinical correlation suggested. Reported By: Oswald Lozada MD 11/07/191838 Right forearm: Fall. Pain. 2 views of the right forearm reveal a subtle deformity of the metaphysis of the distal right radius. This may indicate a subtle impaction fracture of unclear age. The remainder the study is unremarkable. Clinical correlation suggested. Reported By: Oswald Lozada MD 11/07/19 1826 " Pending CT Head/Cspine 11/07/19 18:44 Past History - Medical History Allergies/Adverse Reactions: Allergies Allergy/AdvReac Type Severity Reaction Status Date / Time No Known Allergies Allergy Verified 11/07/19 17:41 Home Medications: Ambulatory Orders Metoprolol Succinate [Toprol Xl] 100 mg PO HS 01/23/15 Aspirin Coated [Ecotrin -] 81 mg PO HS 03/18/17 Amlodipine Besylate [Norvasc -] 5 mg PO DAILY 01/19/19 Cholecalciferol (Vitamin D3) [Vitamin D3 -] 1,000 unit PO DAILY 01/19/19 Donepezil HCl 10 mg PO DAILY 01/19/19 Levothyroxine [Synthroid -] 88 mcg PO DAILY 01/19/19 Losartan Potassium 100 mg PO DAILY 01/19/19 Denosumab [Prolia] 60 mg SQ ASDIR 04/12/19 Anemia: No Asthma: No Cancer: No Cardiac Disorders: Yes (IRREGULAR HEART BEAT, MVP) CVA: No COPD: No CHF: No Dementia: No Diabetes: No GI Disorders: Yes (IBS,DIVERTICULAR DIS.OF COLON,BENIGN NEOPLASM OF COLON) Disorders: No HTN: Yes Hypercholesterolemia: No Liver Disease: No Seizures: No Thyroid Disease: Yes - Surgical History Abdominal Surgery: No Appendectomy: No Cardiac Surgery: No Cholecystectomy: No Lung Surgery: No Neurologic Surgery: No Orthopedic Surgery: No - Immunization History Immunization Up to Date: Yes - Psycho-Social/Smoking History Smoking Status: No Smoking History: Never smoked Have you smoked in the past 12 months: No Number of Cigarettes Smoked Daily: 0 Discharge - Discharge Information Problems reviewed: Yes Clinical Impression/Diagnosis: Fall (on) (from) unspecified stairs and steps, initial encounter, Skin tear Condition: Stable Disposition: HOME - Follow up/Referral - Patient Discharge Instructions Patient Printed Discharge Instructions: How to Prevent Falls Additional Instructions: You came into the emergency department. after a fall. We performed a CT scan of your head and neck which did not indicate acute pathology. Xrays showed some abnormal findings that are likely old, and not from the fall. Follow-up with your primary care doctor this week to discuss this ED visit and to ensure you are progressing appropriately. Call and make an appointment. Your workup is not complete until you do so. You can take [id number] tylenol for your pain. Follow the instructions on the medication bottle. Make sure you do not take too much medicine. The maximum daily dose for tylenol is 4000mg/day. Immediate medical attention is required if you experience: severe headache, fever and chills, nausea and vomiting, lightheadedness, inability to breathe or very rapid breathing, rapid irregular heartbeat, chest pain, or trouble breathing. If you think you are having an emergency, call for emergency medical services or present to the emergency department right away - Post Discharge Activity
--- NOTE | 2019-11-07 16:30 | PDOC ---
Attending Attestation - Resident Resident Name: Brooklynn Garcia - ED Attending Attestation I have performed the following: I have examined & evaluated the patient, The case was reviewed & discussed with the resident, I agree w/resident's findings & plan, Exceptions are as noted - HPI HPI: 74 yo F history MVP, HTN, IBS, essential tremor presents s/p fall after missing a step. She sustained multiple abrasions and skin tears, no LOC. Denies any head trauma, but states that her neck jerked around when she fell. Denies weakness, numbness, [place]. - Physicial Exam PE: GENERAL: Awake, alert, in no acute distress HEAD: No signs of trauma EYES: PERRLA, EOMI, sclera anicteric, conjunctiva clear ENT: Auricles normal inspection, hearing grossly normal, nares patent, oropharynx clear without exudates. Moist mucosa NECK: Normal ROM, supple, no lymphadenopathy, JVD, or masses LUNGS: Breath sounds equal, clear to auscultation bilaterally. No wheezes, and no crackles HEART: Regular rate and rhythm, normal S1 and S2, no murmurs, rubs or gallops ABDOMEN: Soft, nontender, normoactive bowel sounds. No guarding, no rebound. No masses EXTREMITIES: Normal range of motion, no edema. No clubbing or cyanosis. No cords, erythema, or tenderness NEUROLOGICAL: Cranial nerves II through XII grossly intact. Normal speech, normal gait. Motor and sensation intact SKIN: Warm, dry, normal turgor, no rashes. +Skin tear to L upper arm and forearm. No bony tenderness. +Abrasions to the R elbow. - Medical Decision Making 11/07/19 18:41 Xeroform applied to the skin tears to L arm. XR findings d/w radiology. Low suspicion for acute fx based on normal ROM. Await CTH and c-spine. 11/07/19 18:53 XR findings discussed with patient and significant other at bedside. She has history of prior fx to the R wrist, so the XR finding from today is likely old, as she has FROM and no swelling. She also has FROM of the L arm, no signs of acute fx. Await air technician for CTs, will endorse to Dr. Sanches at 7pm shift change. Discharge - Discharge Information Problems reviewed: Yes Clinical Impression/Diagnosis: Skin tear Condition: Stable - Follow up/Referral - Patient Discharge Instructions - Post Discharge Activity
[2019-11-07 16:40] VITALS: BP 135/55; PULSE 88; TEMP 98.1; BMI 20.1
[2019-11-07] MEDS ORDERED: ACETAMINOPHEN 325 MG TABLET (FP) PO ONE (16:49)
[2019-11-07] MEDS ORDERED: ACETAMINOPHEN 325 MG TABLET (FP) ONE (16:59)
--- NOTE | 2019-11-07 19:38 | PDOC ---
*Physical Exam - Vital Signs Last Vital Signs Temp Pulse Resp BP Pulse Ox 98.1 F 88 18 135/55 L 100 11/07/19 16:02 11/07/19 16:02 11/07/19 16:02 11/07/19 16:02 11/07/19 16:02 ED Treatment Course - Medications Given in the ED: ED Medications Discontinued Medications Generic Name Dose Route Start Last Admin Trade Name Darcy PRN Reason Stop Dose Admin Acetaminophen 975 mg 11/07/19 16:49 11/07/19 17:02 Tylenol - PO 11/07/19 16:50 975 mg ONCE ONE Administration ED Progress Note - Progress Note Progress Note: 11/07/19 19:37 This patient was transferred to ar at [address] James. Patient is a 74-year-old female who is well waiting a head CT after falling patient denies hitting her head or loss of consciousness however she does have multiple abrasions and said that her head was jerked as well as her neck so she is getting a head and neck CT. We will follow-up on results and if no acute pathology will discharge. 11/07/19 20:18 CAT scan was read as negative for any acute pathology of the head no bleed or fractures. 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 Patient discharged told to take Tylenol for the pain and follow-up with her primary care doctor Discharge - Discharge Information Problems reviewed: Yes Clinical Impression/Diagnosis: Fall (on) (from) unspecified stairs and steps, initial encounter, Skin tear Condition: Stable Disposition: HOME - Follow up/Referral - Patient Discharge Instructions Patient Printed Discharge Instructions: How to Prevent Falls Additional Instructions: You came into the emergency department. after a fall. We performed a CT scan of your head and neck which did not indicate acute pathology. Xrays showed some abnormal findings that are likely old, and not from the fall. Follow-up with your primary care doctor this week to discuss this ED visit and to ensure you are progressing appropriately. Call and make an appointment. Your workup is not complete until you do so. You can take [id number] tylenol for your pain. Follow the instructions on the medication bottle. Make sure you do not take too much medicine. The maximum daily dose for tylenol is 4000mg/day. Immediate medical attention is required if you experience: severe headache, fever and chills, nausea and vomiting, lightheadedness, inability to breathe or very rapid breathing, rapid irregular heartbeat, chest pain, or trouble breathing. If you think you are having an emergency, call for emergency medical services or present to the emergency department right away - Post Discharge Activity
== END 2019-11-07 20:24 | disposition home or self-care (01) ==
LOC: FER 16:00
DX: R07.9 Chest pain, unspecified (principal); M79.601 Pain in right arm; M79.602 Pain in left arm
CPT/HCPCS: 70450-TC; 71101-TC-LT-FY; 72125-TC; 73030-TC-LT-FY; 73060-TC-LT-FY; 73060-TC-RT-FY; 73090-TC-LT-FY; 73090-TC-RT-FY; 99285-25

== ENCOUNTER 2021-07-03 09:41 | Inpatient (IN) | payer OTHER, BC ==
[2021-07-03 10:02] VITALS: BMI 22.8
[2021-07-03 11:52] LABS: HEMATOCRIT 34.6 % (32.4-45.2); MCHC 34.8 g/dl (32.0-36.0); MEAN CELL VOLUME 89.2 fl (80-96); MEAN PLT VOLUME 6.7 fl (7.5-11.1); PLATELET COUNT 356.3 10^3/uL (134-434); RBC 3.88 10^6/uL (3.60-5.2); RDW 14.1 % (11.6-15.6); WHITE BLOOD COUNT 11.8 10^3/uL (4.0-10.8)
[2021-07-03 11:58] LABS: ALBUMIN 3.3 g/dl (3.4-5.0); ALK PHOS 60 U/L (45-117); ANION GAP 3 MMOL/L (8-16); BILIRUBIN,TOTAL 0.7 mg/dl (0.2-1); CALCIUM 8.8 mg/dl (8.5-10); CHLORIDE 102 mmol/L (98-107); CO2 32 mmol/L (21-32); CREATININE 1.5 mg/dl (0.55-1.3); GLUCOSE,RANDOM 92 mg/dl (74-106); SGOT/AST 24 U/L (15-37); SODIUM 137 mmol/L (136-145); TOT PROT 6.5 g/dl (6.4-8.2)
[2021-07-03 12:10] LABS: SGPT/ALT < 10 U/L (13-61)
[2021-07-03 12:58] LABS: ANISOCYTOSIS 1+
[2021-07-03 12:59] LABS: PLATELET ESTIMATE ADEQUATE
[2021-07-03] MEDS ORDERED: SODIUM CHLORIDE 500 ML IV STA (14:08)
[2021-07-03] MEDS ORDERED: ACETAMINOPHEN 325 MG TABLET (FP) PO ONE (15:21)
[2021-07-03] MEDS ORDERED: ACETAMINOPHEN 325 MG TABLET (FP) ONE (15:26)
[2021-07-03] MEDS ORDERED: CARBIDOPA/LEVODOPA 25/100 TABLET (FP) PO SCH ×2 (17:30)
[2021-07-03] MEDS: CARBIDOPA/LEVODOPA 25/100 TABLET (FP) PO SCH (22:24)
[2021-07-03] MEDS: ASPIRIN COATED 81 MG TABLET.EC PO SCH (22:25)
[2021-07-04] MEDS: LEVOTHYROXINE NA 88 MCG TABLET (FP) PO SCH (06:11)
[2021-07-04] MEDS: CARBIDOPA/LEVODOPA 25/100 TABLET (FP) PO SCH ×3 (06:12→21:05)
[2021-07-04] MEDS: DONEPEZIL HCL 10 MG TABLET (FP) PO SCH (10:00)
[2021-07-04] MEDS: ACETAMINOPHEN 325 MG TABLET (FP) PO PRN ×2 (10:01→21:05)
[2021-07-04] MEDS: CHOLECALCIFEROL (VIT D3) 1,000 UNIT (25 MCG) TABLET PO SCH (10:01)
[2021-07-04 12:53] LABS: HEMATOCRIT 36.6 % (32.4-45.2); HEMOGLOBIN 12.3 G/dL (10.7-15.3); MCH 30.5 pg (25.7-33.7); MCHC 33.7 g/dl (32.0-36.0); MEAN CELL VOLUME 90.5 fl (80-96); MEAN PLT VOLUME 6.9 fl (7.5-11.1); PLATELET COUNT 376.2 10^3/uL (134-434); RBC 4.04 10^6/uL (3.60-5.2); WHITE BLOOD COUNT 7.6 10^3/uL (4.0-10.8)
[2021-07-04 13:05] LABS: CALCIUM 8.6 mg/dl (8.5-10); CREATININE 1.3 mg/dl (0.55-1.3)
[2021-07-04 14:26] LABS: ANISOCYTOSIS 1+; PLATELET ESTIMATE ADEQUATE
[2021-07-04] MEDS: ASPIRIN COATED 81 MG TABLET.EC PO SCH (21:05)
[2021-07-05] MEDS: CARBIDOPA/LEVODOPA 25/100 TABLET (FP) PO SCH (06:58)
[2021-07-05] MEDS: LEVOTHYROXINE NA 88 MCG TABLET (FP) PO SCH (06:58)
[2021-07-05 07:58] LABS: HEMATOCRIT 35.3 % (32.4-45.2); HEMOGLOBIN 11.9 G/dL (10.7-15.3); MCH 30.5 pg (25.7-33.7); MCHC 33.7 g/dl (32.0-36.0); MEAN CELL VOLUME 90.6 fl (80-96); MEAN PLT VOLUME 7.1 fl (7.5-11.1); PLATELET COUNT 347.8 10^3/uL (134-434); RDW 14.2 % (11.6-15.6)
[2021-07-05] MEDS: ACETAMINOPHEN 325 MG TABLET (FP) PO PRN (08:31)
[2021-07-05 08:53] LABS: BILIRUBIN,TOTAL 0.8 mg/dl (0.2-1)
[2021-07-05 09:07] LABS: CALCIUM 8.7 mg/dl (8.5-10); CREATININE 1.3 mg/dl (0.55-1.3); MAGNESIUM 1.9 mg/dL (1.8-2.4); TOT PROT 5.6 g/dl (6.4-8.2)
[2021-07-05] MEDS: CHOLECALCIFEROL (VIT D3) 1,000 UNIT (25 MCG) TABLET PO SCH (10:00)
[2021-07-05] MEDS: DONEPEZIL HCL 10 MG TABLET (FP) PO SCH (10:00)
[2021-07-05] MEDS ORDERED: LIDOCAINE 5% TOPICAL PATCH TP SCH (10:00)
[2021-07-05 12:18] LABS: ANISOCYTOSIS FEW; PLATELET ESTIMATE SLT INCREASE
[2021-07-05 14:05] VITALS: BP 125/50; PULSE 69; TEMP 98.2
[2021-07-05] MEDS ORDERED: LIDOCAINE PATCH REMOVAL MC SCH (22:00)
== END 2021-07-05 14:45 | disposition home or self-care (01) | DRG 684 ==
LOC: FER 09:41 → FM/S 16:59
PROVIDERS: ADMIT Internal Medicine; ATTEND Nurse Practitioner Family
DX: N17.9 Acute kidney failure, unspecified (principal); F03.90 Unspecified dementia, unspecified severity, without behavioral disturbance, psychotic disturbance, mood disturbance, and anxiety; G20 Parkinson's disease; I10 Essential (primary) hypertension; E78.5 Hyperlipidemia, unspecified; R26.81 Unsteadiness on feet; E03.9 Hypothyroidism, unspecified; M19.90 Unspecified osteoarthritis, unspecified site; R55 Syncope and collapse; E86.0 Dehydration; M50.322 Other cervical disc degeneration at C5-C6 level; M54.50 Low back pain, unspecified; W18.39XA Other fall on same level, initial encounter; Y92.098 Other place in other non-institutional residence as the place of occurrence of the external cause
CPT/HCPCS: 36415; 70450-TC; 71101-TC-LT-FY; 72125-TC; 72128-TC; 72131-TC; 80048; 80053; 81003; 82550; 82553; 83735; 84484; 85025; 85027; 87086; 93005; 93306-TC; 93880-TC; 97116-GP; 97162-GP; 99285-25; C9803-CS; U0003; U0005

== ENCOUNTER 2022-03-18 22:57 | Emergency (ER) | payer OTHER, BC ==
[2022-03-18 23:11] VITALS: BP 120/61; PULSE 62; RESP 18; TEMP 97.6; BMI 18.1
== END 2022-03-19 01:03 | disposition home or self-care (01) ==
LOC: JER 22:57
DX: S81.811A Laceration without foreign body, right lower leg, initial encounter (principal); W19.XXXA Unspecified fall, initial encounter
CPT/HCPCS: 73590-TC-RT-FY; 99283-25

== ENCOUNTER 2023-03-18 17:42 | Emergency (ER) | payer OTHER, BC ==
[2023-03-18 17:55] VITALS: BP 116/71; PULSE 79; RESP 19; TEMP 98.2; BMI 18.6
[2023-03-18 19:11] LABS: BASO % 2.7 % (0-2.0); EOS % 4.2 % (0-4.5); HEMATOCRIT 37.9 % (32.4-45.2); HEMOGLOBIN 12.6 GM/dL (10.7-15.3); LYMPH % 19.4 % (8-40); MCH 30.9 pg (25.7-33.7); MCHC 33.2 g/dl (32.0-36.0); MEAN CELL VOLUME 93.2 fl (80-96); MEAN PLT VOLUME 6.5 fl (7.5-11.1); MONO % 16.4 % (3.8-10.2); NEUT % 57.3 % (42.8-82.8); PLATELET COUNT 458 10^3/uL (134-434); RBC 4.06 M/mm3 (3.60-5.2); WHITE BLOOD COUNT 8.4 K/mm3 (4.0-10.0)
[2023-03-18 19:33] LABS: CHLORIDE 108 mmol/L (98-107); SODIUM 140 mmol/L (136-145)
[2023-03-18 19:36] LABS: ALBUMIN 3.1 g/dl (3.4-5.0); BLOOD UREA NITROGEN 27.1 mg/dL (7-18); CO2 27 mmol/L (21-32); GLUCOSE,RANDOM 99 mg/dL (74-106)
[2023-03-18 19:39] LABS: SGOT/AST 70 U/L (15-37); SGPT/ALT 9 U/L (13-61)
[2023-03-18 19:40] LABS: BILIRUBIN,TOTAL 0.4 mg/dL (0.2-1); TOT PROT 6.8 g/dl (6.4-8.2)
[2023-03-18 19:42] LABS: ALK PHOS 69 U/L (45-117)
[2023-03-18 19:50] LABS: ANION GAP 4 mmol/L (4-13); CALCIUM 9.5 mg/dL (8.5-10.1); POTASSIUM 6.2 mmol/L (3.5-5.1)
== END 2023-03-18 23:01 | disposition left against medical advice (07) ==
LOC: JER 17:42
DX: T50.901A Poisoning by unspecified drugs, medicaments and biological substances, accidental (unintentional), initial encounter (principal)
CPT/HCPCS: 36415; 80053; 80307; 82550; 82553; 85025; 99283-25